=== PATIENT | male | born 1985 | race Hispanic/Latino ===

== ENCOUNTER 2017-09-24 10:39 | Inpatient (IN) | payer BC ==
[2017-09-24 10:47] VITALS: BMI 34.2
[2017-09-24] MEDS ORDERED: Sodium Chloride 0.9% 1,000 ML IV STA (11:17)
--- NOTE | 2017-09-24 11:24 | ED PDOC ---
HPI: Abdomen Time Seen by Provider: 09/24/17 10:45 Chief Complaint (Nursing): Abdominal Pain Chief Complaint (Provider): RLQ pain, a few hours History Per: Patient History/Exam Limitations: no limitations Onset/Duration Of Symptoms: Hrs (24 total of abdominal pain ) Quality Of Discomfort: Cramping. denies: Stabbing Additional Complaint(s): PT states last night he had pain around the umbilicus. Pt reports a few episodes of diarrhea. Pt also reports increased pain with walking. Pt does not want anything for pain at this time. Denies fever. Past Medical History Reviewed: Historical Data, Nursing Documentation, Vital Signs Vital Signs: Last Vital Signs Temp 96.7 F L 09/24/17 10:47 Pulse 83 09/24/17 10:47 Resp 20 09/24/17 10:47 BP 130/61 09/24/17 10:47 Pulse Ox 95 09/24/17 10:47 - Medical History PMH: No Chronic Diseases - Surgical History Surgical History: No Surg Hx - Family History Family History: States: Unknown Family Hx - Living Arrangements Living Arrangements: With Family - Social History Current smoker - smoking cessation education provided: No - Home Medications Home Medications: Ambulatory Orders Medication Instructions Recorded Cyclobenzaprine [Cyclobenzaprine 10 mg PO BID #15 tab 11/10/16 HCl] Ibuprofen [Motrin Tab] 600 mg PO Q6 #30 tab 11/10/16 - Allergies Allergies/Adverse Reactions: Allergies Allergy/AdvReac Type Severity Reaction Status Date / Time No Known Allergies Allergy Verified 11/10/16 00:20 Review of Systems ROS Statement: Except As Marked, All Systems Reviewed And Found Negative Constitutional: Negative for: Fever, Chills Respiratory: Negative for: Cough, Shortness of Breath Gastrointestinal: Positive for: Abdominal Pain, Diarrhea. Negative for: Nausea , Vomiting Physical Exam - Reviewed Nursing Documentation Reviewed: Yes Vital Signs Reviewed: Yes - Physical Exam Appears: Positive for: Well, Non-toxic, No Acute Distress Head Exam: Positive for: ATRAUMATIC, NORMAL INSPECTION, NORMOCEPHALIC Skin: Positive for: Normal Color, Warm, DRY Eye Exam: Positive for: Normal appearance ENT: Positive for: Normal ENT Inspection Neck: Positive for: Normal, Painless ROM Cardiovascular/Chest: Positive for: Regular Rate, Rhythm Respiratory: Positive for: CNT, Normal Breath Sounds Gastrointestinal/Abdominal: Positive for: Bowel Sounds, Soft, Tenderness (RLQ, McBurney's point ). Negative for: Normal Exam, Guarding, Rebound Back: Positive for: Normal Inspection Extremity: Positive for: Normal ROM Neurologic/Psych: Positive for: Alert, Oriented - ECG O2 Sat by Pulse Oximetry: 95 Disposition - Disposition
[2017-09-24 11:45] LABS: BASO % 0.2 % (0.0-2.0); EOS # 0.2 K/uL (0.0-0.7); HEMOGLOBIN 15.9 g/dL (12.0-18.0); LYMPH # 1.9 K/uL (1.0-4.3); LYMPH % 21.4 % (20.0-40.0); MEAN CELL VOLUME 84.3 fl (80.0-94.0); MEAN CORPUSCULAR HGB CONC 34.4 g/dL (33.0-37.0); MEAN PLATELET VOLUME 7.1 fl (7.2-11.7); MONO # 0.8 K/uL (0.0-0.8); NEUT # 6.2 K/uL (1.8-7.0); NEUT % 67.4 % (50.0-75.0); NRBC % 0.1 % (0.0-0.0); RBC 5.47 Mil/uL (4.40-5.90); RED CELL DISTRIBUTION WIDTH 13.1 % (11.5-14.5); WHITE BLOOD COUNT 9.1 K/uL (4.8-10.8)
[2017-09-24 11:49] LABS: ALBUMIN 5.1 g/dL (3.5-5.0); ALT/SGPT 93 U/L (21-72); AST/SGOT 51 U/L (17-59); BLOOD UREA NITROGEN 13 mg/dl (9-20); CALCIUM 10.7 mg/dL (8.4-10.2); GFR AFRICAN-AMERICAN > 60; GFR NON-AFRICAN AMERICAN > 60
[2017-09-24 12:08] LABS: ALB/GLOB RATIO 1.7 (1.0-2.1)
[2017-09-24] MEDS ORDERED: Iohexol 300 100 ML IJ ONE (12:16)
[2017-09-24] MEDS ORDERED: Sodium Chloride 0.9% 50 ML IV ONE (12:16)
--- NOTE | 2017-09-24 13:22 | CT ---
PROCEDURE: CT Abdomen and Pelvis with contrast HISTORY: RLQ pain COMPARISON: None. TECHNIQUE: Contrast dose: 100 milliliters Omnipaque Radiation dose: Total exam DLP = 1121 mGy-cm. This CT exam was performed using one or more of the following dose reduction techniques: Automated exposure control, adjustment of the mA and/or kV according to patient size, and/or use of iterative reconstruction technique. FINDINGS: LOWER THORAX: Unremarkable. LIVER: Liver is mildly fatty infiltrated, without evidence of focal mass or intrahepatic ductal dilatation. GALLBLADDER AND BILE DUCTS: Unremarkable. PANCREAS: Unremarkable. No gross lesion or ductal dilatation. SPLEEN: Unremarkable. ADRENALS: Unremarkable. No mass. KIDNEYS AND URETERS: Unremarkable. No hydronephrosis. No solid mass. VASCULATURE: Unremarkable. No aortic aneurysm. BOWEL: There may be some mild colonic wall thickening in the cecum adjacent to an inflamed appendix. Remainder of the colon is unremarkable with moderate residual fecal material appreciated. No small bowel dilatation is seen to suggest bowel obstruction. Visualized stomach and duodenum are unremarkable. Mild small bowel ileus however is not excluded with some mild fluid-filled small bowel loops seen in the mid and distal portions. APPENDIX: There is an enhancing and mildly thickened appendix with mild periappendiceal inflammatory changes noted. Findings suggest appendicitis. No focal fluid collection adjacent to this region to suggest perforation is noted. No abscess is seen in this region. There is mild adjacent thickening at the base of the cecum. No free intraperitoneal air is appreciated. PERITONEUM: No significant ascites. No free intraperitoneal air. No significant mesenteric adenopathy. LYMPH NODES: A few small scattered shotty right lower quadrant lymph nodes are seen. BLADDER: Unremarkable. REPRODUCTIVE: Unremarkable. BONES: No acute fracture. OTHER FINDINGS: None. IMPRESSION: Imaging findings consistent with appendicitis. No periappendiceal abscess is seen.
[2017-09-24] MEDS ORDERED: Piperacillin/Tazobact 3.375 GM in Sodium Chloride 0.9% 100 ML IV ONE (13:28)
[2017-09-24] MEDS ORDERED: Piperacillin/Tazobact 3.375 gm Inj IVPB ONE (13:57)
--- NOTE | 2017-09-24 15:02 | RAD ---
PROCEDURE: CHEST RADIOGRAPH, 1 VIEW HISTORY: pre op eval COMPARISON: None available. FINDINGS: LUNGS: Clear. PLEURA: No pneumothorax or pleural fluid seen. CARDIOVASCULAR: Normal. OSSEOUS STRUCTURES: No significant abnormalities. VISUALIZED UPPER ABDOMEN: Normal. OTHER FINDINGS: None. IMPRESSION: No active disease.
[2017-09-24] MEDS ORDERED: Lactated Ringer's 1,000 ML IV ONE ×2 (15:30→18:31)
--- NOTE | 2017-09-24 16:11 | CP.PCM.CON ---
History of Present Illness - History of Present Illness History of Present Illness: General surgery consult note for Dr. Gilbert Young, PGY-1 Pt S & E at bedside. 31M w/no sig PMH consulted for abdominal pain x 1 day. Pt reports eating 1/2 a left over wrap with onset of periumbilical abdominal pain within 35-40 min with diarrhea. Pt reports alleviation of diarrhea but not abdominal pain with Pepto , Immodium, Tums. Pt woke up with re-localization of pain to the RLQ. Pain was sharp, severe, constant, non radiating. Denies N & V, F & C, changes in urination, other complaints. Last meal: 9:30 am - eggs & slice of pizza PMH: Denies PSH: [place] tooth removal All: Seasonal, environmental SH: Admits to ETOH use, average #30 (beer, hard liqour) a week. Denies tobacco or illicit drug use PMD: [place] Past Patient History - Past Social History Smoking Status: Unknown If Ever Smoked - PSYCHIATRIC Hx Substance Use: No Meds Allergies/Adverse Reactions: Allergies Allergy/AdvReac Type Severity Reaction Status Date / Time No Known Allergies Allergy Verified 11/10/16 00:20 - Medications Medications: Current Medications Lactated Ringer's (Lactated Ringer's) 1,000 mls @ 125 mls/hr IV .Q8H JIMMIE Ondansetron HCl (Zofran Inj) 4 mg IVP Q6 PRN PRN Reason: Nausea/Vomiting Physical Exam - Constitutional Appears: Non-toxic, No Acute Distress - Head Exam Head Exam: ATRAUMATIC, NORMAL INSPECTION, NORMOCEPHALIC - Eye Exam Eye Exam: EOMI, Normal appearance - ENT Exam ENT Exam: Mucous Membranes Moist, Normal Exam - Neck Exam Neck exam: Positive for: Full Rom, Normal Inspection - Respiratory Exam Respiratory Exam: Clear to Auscultation Bilateral, NORMAL BREATHING PATTERN. absent: Rales, Rhonchi, Wheezes - Cardiovascular Exam Cardiovascular Exam: REGULAR RHYTHM, +S1, +S2 - GI/Abdominal Exam GI & Abdominal Exam: Guarding (RLQ), Normal Bowel Sounds, Soft, Tenderness (RLQ) . absent: Distended, Firm, Hernia, Hyperactive Bowel Sounds, Hypoactive Bowel Sounds, Rebound, Rigid Additional comments: -Rovsings, -Psoas, -Obturator signs - Extremities Exam Extremities exam: Positive for: normal inspection. Negative for: pedal edema - Neurological Exam Neurological exam: Alert, CN II-XII Intact, Oriented x3 - Psychiatric Exam Psychiatric exam: Normal Affect, Normal Mood - Skin Skin Exam: Dry, Intact, Normal Color, Warm Results - Vital Signs Recent Vital Signs: Last Vital Signs Temp 96.7 F L 09/24/17 10:47 Pulse 78 09/24/17 15:24 Resp 18 09/24/17 15:24 BP 138/61 09/24/17 15:24 Pulse Ox 99 09/24/17 14:09 - Labs Result Diagrams: 09/24/17 11:25 09/24/17 11:25 Labs: Laboratory Results - last 24 hr 09/24/17 09/24/17 11:25 11:25 WBC 9.1 RBC 5.47 Hgb 15.9 Hct 46.2 MCV 84.3 MCH 29.0 MCHC 34.4 RDW 13.1 Plt Count 246 MPV 7.1 L Neut % (Auto) 67.4 Lymph % (Auto) 21.4 [place] % (Auto) 9.0 Eos % (Auto) 2.0 Baso % (Auto) 0.2 Neut # 6.2 Lymph # 1.9 [place] # 0.8 Eos # 0.2 Baso # 0.0 Sodium 142 Potassium 4.4 Chloride 104 Carbon Dioxide 26 Anion Gap 16 BUN 13 Creatinine 1.1 Est GFR ( Amer) > 60 Est GFR (Non-Af Amer) > 60 Random Glucose 95 Calcium 10.7 H Total Bilirubin 1.1 AST 51 ALT 93 H Alkaline Phosphatase 66 Total Protein 8.1 Albumin 5.1 H Globulin 3.0 Albumin/Globulin Ratio 1.7 Assessment & Plan - Assessment and Plan (Free Text) Assessment: 31M w/acute appendicitis Plan: Plan for OR today IVF Pain mgmt Anti-emetic NPO Consent in chart DW attending Hannah, PGY-1 - Date & Time Date: 09/24/17 Time: 16:11
[2017-09-24] MEDS ORDERED: Lactated Ringer's 1,000 ML IV SCH ×2 (16:15→18:45)
[2017-09-24] MEDS ORDERED: Succinylcholine 200 mg/10 ml Inj IV ONE (17:11)
[2017-09-24] MEDS ORDERED: Propofol 10 mg/ml Inj (20 ML) ONE ×3 (17:11→18:06)
[2017-09-24] MEDS ORDERED: Rocuronium 10 mg/ml (5 ml) ONE (17:11)
[2017-09-24] MEDS ORDERED: Lidocaine 4% (Laryng-O-Jet) Kit MM ONE (17:13)
[2017-09-24] MEDS ORDERED: Midazolam 2 MG/2 ML VIAL ONE (17:31)
[2017-09-24] MEDS ORDERED: Dexamethasone 4 mg/1 ml ONE (17:38)
[2017-09-24] MEDS ORDERED: HYDROmorphone 0.5 mg/0.5 ml ISec IVP PRN (18:34)
--- NOTE | 2017-09-24 18:34 | PCM.SURG1 ---
Surgeon's Initial Post Op Note - Surgeon's Notes Surgeon: Salbador Andrade MD Hydroelectric Plant Technician: Annabelle Young PGY-1 Type of Anesthesia: General Endo Pre-Operative Diagnosis: Acute appendicitis Operative Findings: See op report Post-Operative Diagnosis: Acute appendicitis Operation Performed: Laparoscopic appendectomy Specimen/Specimens Removed: Appendix Estimated Blood Loss: EBL {In ML}: 10 Blood Products Given: N/A Drains Used: No Drains Post-Op Condition: Good Date of Surgery/Procedure: 09/24/17 Time of Surgery/Procedure: 18:33
[2017-09-24] MEDS ORDERED: BSS 15 ML SOL IR ONE ×2 (19:00→19:09)
[2017-09-24] MEDS ORDERED: BSS 15 ML 15 ML IR ONE (19:00)
[2017-09-24] MEDS ORDERED: Influenza Vaccine 18yr & older 0.5 ML/45 MCG SYR IM ONE (20:21)
--- NOTE | 2017-09-24 21:59 | CP.PCM.HP ---
History of Present Illness - History of Present Illness History of Present Illness: 31 yo admitted for RLQ pain CT scan consistent with Acute Appendicitis Present on Admission - Present on Admission Any Indicators Present on Admission: No Past Patient History - Past Medical History & Family History Past Medical History?: No - Past Social History Smoking Status: Unknown If Ever Smoked - CARDIAC Hx Cardiac Disorders: No - PULMONARY Hx Asthma: Yes - NEUROLOGICAL Hx Neurological Disorder: No - HEENT Hx HEENT Problems: No - RENAL Hx Chronic Kidney Disease: No - ENDOCRINE/METABOLIC Hx Endocrine Disorders: No - HEMATOLOGICAL/ONCOLOGICAL Hx Blood Disorders: No - INTEGUMENTARY Hx Dermatological Problems: No - MUSCULOSKELETAL/RHEUMATOLOGICAL Hx Musculoskeletal Disorders: No Hx Falls: No - GASTROINTESTINAL Hx Gastrointestinal Disorders: No - GENITOURINARY/GYNECOLOGICAL Hx Genitourinary Disorders: No - PSYCHIATRIC Hx Substance Use: No - SURGICAL HISTORY Hx Surgeries: No - ANESTHESIA Hx Anesthesia: No Meds Allergies/Adverse Reactions: Allergies Allergy/AdvReac Type Severity Reaction Status Date / Time No Known Allergies Allergy Verified 11/10/16 00:20 Physical Exam - Respiratory Exam Respiratory Exam: NORMAL BREATHING PATTERN - Cardiovascular Exam Cardiovascular Exam: REGULAR RHYTHM - GI/Abdominal Exam GI & Abdominal Exam: Normal Bowel Sounds Results - Vital Signs Recent Vital Signs: Last Vital Signs Temp 98.5 F 09/24/17 21:00 Pulse 78 09/24/17 21:00 Resp 18 09/24/17 21:00 BP 137/65 09/24/17 21:00 Pulse Ox 94 L 09/24/17 21:00 - Labs Result Diagrams: 09/24/17 11:25 09/24/17 11:25 Labs: Laboratory Results - last 24 hr 09/24/17 09/24/17 11:25 11:25 WBC 9.1 RBC 5.47 Hgb 15.9 Hct 46.2 MCV 84.3 MCH 29.0 MCHC 34.4 RDW 13.1 Plt Count 246 MPV 7.1 L Neut % (Auto) 67.4 Lymph % (Auto) 21.4 [place] % (Auto) 9.0 Eos % (Auto) 2.0 Baso % (Auto) 0.2 Neut # 6.2 Lymph # 1.9 [place] # 0.8 Eos # 0.2 Baso # 0.0 Sodium 142 Potassium 4.4 Chloride 104 Carbon Dioxide 26 Anion Gap 16 BUN 13 Creatinine 1.1 Est GFR ( Amer) > 60 Est GFR (Non-Af Amer) > 60 Random Glucose 95 Calcium 10.7 H Total Bilirubin 1.1 AST 51 ALT 93 H Alkaline Phosphatase 66 Total Protein 8.1 Albumin 5.1 H Globulin 3.0 Albumin/Globulin Ratio 1.7 Assessment & Plan - Assessment and Plan (Free Text) Assessment: Acute Appendicitis S/P appendectomy IVF Pain meds Incentive spirometry Elevated Calcium and LFT repeat in am - Date & Time Date: 09/24/17 Time: 22:22
[2017-09-25 06:24] LABS: HEMOGLOBIN 13.2 g/dL (12.0-18.0); MEAN CELL VOLUME 86.1 fl (80.0-94.0); MEAN CORPUSCULAR HGB CONC 33.7 g/dL (33.0-37.0); RBC 4.55 Mil/uL (4.40-5.90); WHITE BLOOD COUNT 10.5 K/uL (4.8-10.8)
[2017-09-25 06:48] LABS: ALB/GLOB RATIO 1.5 (1.0-2.1); ALBUMIN 3.9 g/dL (3.5-5.0); ALT/SGPT 68 U/L (21-72); AST/SGOT 35 U/L (17-59); BLOOD UREA NITROGEN 14 mg/dl (9-20); CALCIUM 9.6 mg/dL (8.4-10.2); GFR AFRICAN-AMERICAN > 60; GFR NON-AFRICAN AMERICAN > 60
--- NOTE | 2017-09-25 07:03 | CP.PCM.PN ---
Subjective - Date & Time of Evaluation Date of Evaluation: 09/25/17 Time of Evaluation: 06:59 - Subjective Subjective: General Surgery: Dr Andrade Pt S&E. POD#1 s/p laparoscopic appendectomy. Pt tolerating diet. OOB and ambulating. Pain well controlled. Voiding independently. Denies N/V, F/C, SOB , or chest pain. Objective - Vital Signs/Intake and Output Vital Signs (last 24 hours): Temp Pulse Resp BP Pulse Ox 97.9 F 83 19 116/68 97 09/25/17 04:00 09/25/17 04:00 09/25/17 04:00 09/25/17 04:00 09/25/17 04:00 Intake and Output: 09/24/17 09/25/17 18:59 06:59 Intake Total 1200 Balance 1200 - Medications Medications: Current Medications Acetaminophen (Tylenol 325mg Tab) 650 mg PO Q6 PRN PRN Reason: Pain, moderate (4-7) Ibuprofen (Motrin Tab) 600 mg PO Q6 PRN PRN Reason: Pain, severe (8-10) Ondansetron HCl (Zofran Inj) 4 mg IVP Q6 PRN PRN Reason: Nausea/Vomiting - Labs Labs: 09/25/17 05:50 09/25/17 05:50 - Constitutional Appears: Non-toxic, No Acute Distress - Head Exam Head Exam: NORMAL INSPECTION - ENT Exam ENT Exam: Mucous Membranes Moist - Respiratory Exam Respiratory Exam: absent: Accessory Muscle Use, Respiratory Distress - Cardiovascular Exam Cardiovascular Exam: REGULAR RHYTHM. absent: Tachycardia - GI/Abdominal Exam GI & Abdominal Exam: Soft, Tenderness (post-op and appropriate). absent: Distended, Firm Additional comments: dressing c/d/i - Extremities Exam Extremities Exam: absent: Pedal Edema - Neurological Exam Neurological Exam: Alert, Awake, Oriented x3 - Psychiatric Exam Psychiatric exam: Normal Affect, Normal Mood - Skin Skin Exam: Normal Color, Warm Assessment and Plan - Assessment and Plan (Free Text) Assessment: 31M POD#1 s/p lap appendectomy Plan: cont regular diet clear for discharge from surgical standpoint clear to shower tomorrow refrain from heavy lifting for 2 weeks post-op instructions given follow up in clinic in 1 week will d/w Dr Raymond Franz, PGY3
[2017-09-25 07:48] VITALS: BP 121/65; PULSE 86; RESP 20; TEMP 98.2; O2SAT 96
--- NOTE | 2017-09-25 08:20 | CARD ---
APPROVED REPORT EKG Measurement Heart [id number] <Conclusion> Normal sinus rhythm Nonspecific T wave abnormality Abnormal ECG baseline artefact
--- NOTE | 2017-09-25 20:29 | CP.PCM.PN ---
Subjective - Date & Time of Evaluation Date of Evaluation: 09/25/17 Time of Evaluation: 22:22 - Subjective Subjective: Above noted Repeat labs wnl Objective - Vital Signs/Intake and Output Vital Signs (last 24 hours): Temp Pulse Resp BP Pulse Ox 98.2 F 86 20 121/65 96 09/25/17 07:47 09/25/17 07:47 09/25/17 07:47 09/25/17 07:47 09/25/17 07:47 - Labs Labs: 09/25/17 05:50 09/25/17 05:50 - Respiratory Exam Respiratory Exam: NORMAL BREATHING PATTERN - Cardiovascular Exam Cardiovascular Exam: REGULAR RHYTHM - GI/Abdominal Exam GI & Abdominal Exam: Normal Bowel Sounds Assessment and Plan - Assessment and Plan (Free Text) Assessment: Acute Appendicitis S/P appendectomy POD #1 IVF Pain meds Incentive spirometry Elevated Calcium and LFT repeat labs wnl
--- NOTE | 2017-09-26 11:27 | OP ---
PROCEDURE DATE: 09/24/2017 SURGEON: Alin Andrade MD. CORPORATE TRAVEL EXPERT: Dr. Young. TYPE OF ANESTHESIA: General. ANESHTHESIA ADMINISTERED BY: Mendel Hernandez MD. PREOPERATIVE DIAGNOSIS: Acute appendicitis. POSTOPERATIVE DIAGNOSIS: Acute appendicitis. PROCEDURE: Laparoscopic appendectomy. DESCRIPTION OF OPERATION: With the patient in the supine position, under adequate general anesthesia, the abdomen was prepped and draped in the usual sterile manner. Veress needle puncture was performed at the umbilicus with insufflation to 15 cm water pressure of CO2 and a 5 mm laparoscopic trocar was inserted via an infraumbilical incision. Under direct vision, 5 and 12 mm trocars were inserted in the left lower quadrant. The appendix was visualized and appeared acutely inflamed. The appendix was elevated and the mesoappendix was dissected. The mesoappendix was divided with an Endo-VANCE stapler with the area of the appendiceal artery being reinforced with hemoclips. The appendix itself was then amputated close to the cecum using the Endo-VANCE stapler. The appendix was placed in a specimen retrieval bag and removed via the 12 mm port site. The right lower quadrant was suctioned and no bleeding was noted. The pneumoperitoneum was released and the trocars were removed. The 12 mm port site was closed with a fascial [id number]-la-[id number] suture of 0 Vicryl. All incisions were closed with 4-0 Monocryl subcuticular sutures and Steri-Strips. Dry sterile dressings were applied. The patient tolerated the procedure well and transferred to recovery room in stable condition. Estimated blood loss for the procedure was 10 mL. Alin Andrade MD
== END 2017-09-25 13:45 | disposition home or self-care (01) | DRG 343 ==
LOC: H.ER 10:39 → H.ERHOLD 13:45 → H.MEDSURG1 15:29
PROVIDERS: ADMIT Family Medicine Geriatric Medicine; ATTEND Family Medicine Geriatric Medicine
PROC: 0DTJ4ZZ Resection of Appendix, Percutaneous Endoscopic Approach (ICD-10-PCS; principal; 2017-09-24 17:30)
PROC: 3E0234Z Introduction of Serum, Toxoid and Vaccine into Muscle, Percutaneous Approach (ICD-10-PCS; 2017-09-25)
DX: K35.80 Unspecified acute appendicitis (principal); Z23 Encounter for immunization